=== PATIENT | female | born 1940 | race Caucasian/White ===

== ENCOUNTER 2017-04-04 21:33 | Emergency (ER) | payer OTHER ==
--- NOTE | 2017-04-04 21:55 | ED NURSING NOTES ---
Clinical Report - Nurses [facility] [address] [place] [address] 04/04/2017 21:36 Patient: CARMENCITA VERNON TRIAGE Triage time 21:41 Apr 04 2017. Acuity: LEVEL 4. Chief Complaint: REDNESS, PAIN and VISION PROBLEM TO LEFT EYE. 21:47 04/04/17. SEPSIS SCREEN: Sepsis Screen. Negative (no infection suspected/documented). VISUAL ACUITY: Visual acuity performed: left eye 20/25; right eye 20/30. SPEEDY COMA SCORE: Speedy Coma Scale: 15- eyes open spontaneously (4); best verbal response- oriented x 4 (5); best motor response- obeys commands (6). --21:47 Sobia Lewis R.N. 21:41 04/04/17. BP: 147/66 (regular adult cuff) taken on the left arm, while sitting. HR: 76. RR: 14. O2 saturation: 99% on room air. Temp: 97.8 F (oral). Pain level now: 11/30. --21:47 Sobia Lewis R.N. Weight: 62.5 kg stated. Height/Length: 64 inches Per Patient. BMI: 23.7. --21:45 Sobia Lewis R.N. Medications Allopurinol Oral. --21:42 Sobia Lewis R.N. Ambien Oral. --21:42 Sobia Lewis R.N. Atorvastatin Calcium Oral. --21:42 Sobia Lewis R.N. Hydrocodone-Acetaminophen Oral. --21:44 Sobia Lewis R.N. History Arrived by private vehicle. Historian: patient. Accompanied by family. This started just prior to arrival. She did not sustain an injury. She has had eye discomfort and eye irritation. ( Dry eye). Treatment SOD STRIPPER: None. PAST MEDICAL HX: The patient does not wear contact lenses. The patient is post-menopausal. SOCIAL HX: Never smoker. Occasional alcohol use. No drug use. No infectious disease exposure. ABUSE ASSESSMENT: No report of abuse. --21:47 Sobia Lewis R.N. PROBLEMS: Anxiety Reaction. Gout. Hypercholesterolemia. --21:43 Sobia Lewis R.N. DDD. --21:44 Sobia Lewis R.N. ADDITIONAL SURGERIES: Turmor removed adrenal gland. --21:43 Sobia Lewis R.N. Interventions ID band on patient. To treatment room. --21:47 Sobia Lewis R.N. PHYSICAL ASSESSMENT 21:48 04/04/17. Ambulatory to room. GENERAL / NEURO / PSYCH: Alert. Appears in no acute distress. HEENT: No facial asymmetry noted. EOM intact. Right ear within normal limits. Left ear within normal limits. Mouth inspection within normal limits. Pharynx within normal limits. RESPIRATORY: Respirations not labored. CVS: Capillary refill less than 2 seconds. SKIN: Skin is warm and dry. Normal skin turgor. --21:48 Sobia Lewis R.N. NURSING PROGRESS NOTES 21:48 04/04/17. The plan of care for this patient has been created. Head of bed elevated. Reassurance given. Two patient identifiers checked. Call light placed in reach. Side rails up x 1. Bed placed in lowest position. Brakes of bed on. Patient ready for evaluation- chart flagged and ED physician notified. --21:48 Sobia Lewis R.N. DISPOSITION / DISCHARGE Departure time: 2200 PM. Condition at departure: unchanged and stable. ( Pt left without any paperwork). The patient left prior to discharge education being provided. The patient was discharged by the nurse practitioner. She was discharged home and accompanied by family. She left the Emergency Department ambulatory and via private vehicle. Family member driving. FALL RISK ASSESSMENT: Fall risk assessment completed. No fall risk identified. --22:10 Jaclyn [place] R.N. 21:47 04/04/17. BP: 147/66 (regular adult cuff) taken on the left arm, via an automated monitor, while sitting. HR: 76. RR: 14. O2 saturation: 99%. Pain level now: 11/30. --22:10 Jaclyn [place] R.N. Locked/Released at 04/04/2017 22:10 by Jaclyn [place] R.N.
--- NOTE | 2017-04-04 21:55 | ED CLINICAL REPORT ---
Clinical Report - Physicians/Mid Levels [facility] [address] [place] [address] 04/04/2017 21:36 Patient: CARMENCITA VERNON Time Seen: 21:44; initial patient contact, initial documentation, patient care assumed. Arrived- By private vehicle. Historian- patient. HISTORY OF PRESENT ILLNESS Chief Complaint: bleeding. This started just prior to arrival, involves the left eye, is characterized as mild and has been constant and is still present. The patient did not sustain an injury. No eye pain, eye redness, eye irritation or eye discharge or eye itching. No eyelid swelling, photophobia, blurred vision, double vision or decreased vision. No loss of vision. Eye discomfort. ( sitting in car when blood started pooling in eye, had this happen before). REVIEW OF SYSTEMS All systems otherwise negative, except as recorded above. PAST HISTORY See nurses notes. PROBLEMS: Anxiety Reaction. Gout. Hypercholesterolemia. --21:43 Sobia Lewis R.N. DDD. --21:44 Sobia Lewis R.N. ADDITIONAL SURGERIES: Turmor removed adrenal gland. --21:43 Sobia Lewis R.N. No history of prior eye injury. SOCIAL HISTORY Never smoker. Occasional alcohol use. No drug use. FAMILY HISTORY No significant family medical history. ADDITIONAL NOTES The nursing notes have been reviewed with agreement regarding the chief complaint, HPI, ROS, PMH and patient medications and allergies. PHYSICAL EXAM Vital Signs: 04/04/2017 21:41 BP: 147/66. HR: 76. RR: 14. O2 saturation: 99%. Temp: 97.8 F. Pain level now: 2/10. Have been reviewed as normal and appear to be correct. HEENT: Ears normal. Nose normal. Pharynx normal. Head appears normal to external inspection. Rt Eye: Right eye exam normal. Eyes: Visual acuity noted- see nurse's notes. Eyelids appear normal to inspection. Conjunctivae and sclerae do not appear normal to inspection. Corneas appear normal to inspection. Pupils equal, round and reactive to light. Accommodation normal. Funduscopic exam normal. Visual robertson normal. EOMs intact. Periorbital areas appear normal to inspection. Anterior chambers clear. Anterior chambers of normal depth. Lt Eye: Left eye exam normal. Medium sized subconjunctival hemorrhage (L side). Neck: Neck supple. Normal inspection. Respiratory: No respiratory distress. Skin: No rash. Extremities: Extremities negative. Neuro: Oriented X 3. Mood/affect normal. No motor deficit. No sensory deficit. PROGRESS AND PROCEDURES Course of Care: pt politely declined pain med offer, stating it wasn't that bad. Patient and family counseled in person regarding the patient's stable condition and diagnosis. Differential Diagnosis: Other possible considerations: fb, eye trauma, glaucoma, hyphema, conjunctivitis. Above considerations are based on history and physical exam. Differential diagnosis was discussed with patient. Disposition: Discharged home in good and unchanged condition (21:54). Condition: good and stable. CLINICAL IMPRESSION Left subconjunctival hemorrhage INSTRUCTIONS Warnings: GENERAL WARNINGS: Return or contact your physician immediately if your condition worsens or changes unexpectedly, if not improving as expected, or if other problems arise. Specifically return if problem worsens. Understanding of the discharge instructions verbalized by patient. Follow-up with: Alexus Ghotra MD, Ophthalmology, [facility], [address] [place] [address] - [address], [place] [address]; Michael June MD, Ophthalmology, , [facility], [address] [place] [address]; Katie Emmanuel MD, Ophthalmology, , [address], [place] [address]; Michael Amaro MD, Ophthalmology, , [address], [place] [address]; Kaden Vidal MD, Ophthalmology, , [address], [place] [address]; Van Cabral MD, Ophthalmology, , [address], , [place] [address]; Lea Gallo MD, Ophthalmology, , [address], [place] [address]; Michael Perez MD, Ophthalmology, , [facility], [address] [place] [address] Follow up tomorrow as needed. Call for an appointment. Summary of care provided to patient and family. (Electronically signed by Codi Guillen A.R.N.P. 04/04/2017 22:11)
--- NOTE | 2017-04-04 21:55 | ED NURSING NOTES ---
Clinical Report - Nurses [facility] [address] [place] [address] 04/04/2017 21:36 Patient: CARMENCITA VERNON TRIAGE Triage time 21:41 Apr 04 2017. Acuity: LEVEL 4. Chief Complaint: REDNESS, PAIN and VISION PROBLEM TO LEFT EYE. 21:47 04/04/17. SEPSIS SCREEN: Sepsis Screen. Negative (no infection suspected/documented). VISUAL ACUITY: Visual acuity performed: left eye 20/25; right eye 20/30. SPEEDY COMA SCORE: Speedy Coma Scale: 15- eyes open spontaneously (4); best verbal response- oriented x 4 (5); best motor response- obeys commands (6). --21:47 Sobia Lewis R.N. 21:41 04/04/17. BP: 147/66 (regular adult cuff) taken on the left arm, while sitting. HR: 76. RR: 14. O2 saturation: 99% on room air. Temp: 97.8 F (oral). Pain level now: 11/30. --21:47 Sobia Lewis R.N. Weight: 62.5 kg stated. Height/Length: 64 inches Per Patient. BMI: 23.7. --21:45 Sobia Lewis R.N. Medications Allopurinol Oral. --21:42 Sobia Lewis R.N. Ambien Oral. --21:42 Sobia Lewis R.N. Atorvastatin Calcium Oral. --21:42 Sobia Lewis R.N. Hydrocodone-Acetaminophen Oral. --21:44 Sobia Lewis R.N. History Arrived by private vehicle. Historian: patient. Accompanied by family. This started just prior to arrival. She did not sustain an injury. She has had eye discomfort and eye irritation. ( Dry eye). Treatment MINE WIRER: None. PAST MEDICAL HX: The patient does not wear contact lenses. The patient is post-menopausal. SOCIAL HX: Never smoker. Occasional alcohol use. No drug use. No infectious disease exposure. ABUSE ASSESSMENT: No report of abuse. --21:47 Sobia Lewis R.N. PROBLEMS: Anxiety Reaction. Gout. Hypercholesterolemia. --21:43 Sobia Lewis R.N. DDD. --21:44 Sobia Lewis R.N. ADDITIONAL SURGERIES: Turmor removed adrenal gland. --21:43 Sobia Lewis R.N. Interventions ID band on patient. To treatment room. --21:47 Sobia Lewis R.N. PHYSICAL ASSESSMENT 21:48 04/04/17. Ambulatory to room. GENERAL / NEURO / PSYCH: Alert. Appears in no acute distress. HEENT: No facial asymmetry noted. EOM intact. Right ear within normal limits. Left ear within normal limits. Mouth inspection within normal limits. Pharynx within normal limits. RESPIRATORY: Respirations not labored. CVS: Capillary refill less than 2 seconds. SKIN: Skin is warm and dry. Normal skin turgor. --21:48 Sobia Lewis R.N. NURSING PROGRESS NOTES 21:48 04/04/17. The plan of care for this patient has been created. Head of bed elevated. Reassurance given. Two patient identifiers checked. Call light placed in reach. Side rails up x 1. Bed placed in lowest position. Brakes of bed on. Patient ready for evaluation- chart flagged and ED physician notified. --21:48 Sobia Lewis R.N. DISPOSITION / DISCHARGE Departure time: 2200 PM. Condition at departure: unchanged and stable. ( Pt left without any paperwork). The patient left prior to discharge education being provided. The patient was discharged by the nurse practitioner. She was discharged home and accompanied by family. She left the Emergency Department ambulatory and via private vehicle. Family member driving. FALL RISK ASSESSMENT: Fall risk assessment completed. No fall risk identified. --22:10 Jaclyn [place] R.N. 21:47 04/04/17. BP: 147/66 (regular adult cuff) taken on the left arm, via an automated monitor, while sitting. HR: 76. RR: 14. O2 saturation: 99%. Pain level now: 11/30. --22:10 Jaclyn [place] R.N. Locked/Released at 04/04/2017 22:10 by Jaclyn [place] R.N.
--- NOTE | 2017-04-04 21:55 | ED CLINICAL REPORT ---
Clinical Report - Physicians/Mid Levels [facility] [address] [place] [address] 04/04/2017 21:36 Patient: CARMENCITA VERNON Time Seen: 21:44; initial patient contact, initial documentation, patient care assumed. Arrived- By private vehicle. Historian- patient. HISTORY OF PRESENT ILLNESS Chief Complaint: bleeding. This started just prior to arrival, involves the left eye, is characterized as mild and has been constant and is still present. The patient did not sustain an injury. No eye pain, eye redness, eye irritation or eye discharge or eye itching. No eyelid swelling, photophobia, blurred vision, double vision or decreased vision. No loss of vision. Eye discomfort. ( sitting in car when blood started pooling in eye, had this happen before). REVIEW OF SYSTEMS All systems otherwise negative, except as recorded above. PAST HISTORY See nurses notes. PROBLEMS: Anxiety Reaction. Gout. Hypercholesterolemia. --21:43 Sobia Lewis R.N. DDD. --21:44 Sobia Lewis R.N. ADDITIONAL SURGERIES: Turmor removed adrenal gland. --21:43 Sobia Lewis R.N. No history of prior eye injury. SOCIAL HISTORY Never smoker. Occasional alcohol use. No drug use. FAMILY HISTORY No significant family medical history. ADDITIONAL NOTES The nursing notes have been reviewed with agreement regarding the chief complaint, HPI, ROS, PMH and patient medications and allergies. PHYSICAL EXAM Vital Signs: 04/04/2017 21:41 BP: 147/66. HR: 76. RR: 14. O2 saturation: 99%. Temp: 97.8 F. Pain level now: 2/10. Have been reviewed as normal and appear to be correct. HEENT: Ears normal. Nose normal. Pharynx normal. Head appears normal to external inspection. Rt Eye: Right eye exam normal. Eyes: Visual acuity noted- see nurse's notes. Eyelids appear normal to inspection. Conjunctivae and sclerae do not appear normal to inspection. Corneas appear normal to inspection. Pupils equal, round and reactive to light. Accommodation normal. Funduscopic exam normal. Visual robertson normal. EOMs intact. Periorbital areas appear normal to inspection. Anterior chambers clear. Anterior chambers of normal depth. Lt Eye: Left eye exam normal. Medium sized subconjunctival hemorrhage (L side). Neck: Neck supple. Normal inspection. Respiratory: No respiratory distress. Skin: No rash. Extremities: Extremities negative. Neuro: Oriented X 3. Mood/affect normal. No motor deficit. No sensory deficit. PROGRESS AND PROCEDURES Course of Care: pt politely declined pain med offer, stating it wasn't that bad. Patient and family counseled in person regarding the patient's stable condition and diagnosis. Differential Diagnosis: Other possible considerations: fb, eye trauma, glaucoma, hyphema, conjunctivitis. Above considerations are based on history and physical exam. Differential diagnosis was discussed with patient. Disposition: Discharged home in good and unchanged condition (21:54). Condition: good and stable. CLINICAL IMPRESSION Left subconjunctival hemorrhage INSTRUCTIONS Warnings: GENERAL WARNINGS: Return or contact your physician immediately if your condition worsens or changes unexpectedly, if not improving as expected, or if other problems arise. Specifically return if problem worsens. Understanding of the discharge instructions verbalized by patient. Follow-up with: Alexus Ghotra MD, Ophthalmology, [facility], [address] [place] [address] - [address], [place] [address]; Michael June MD, Ophthalmology, , [facility], [address] [place] [address]; Katie Emmanuel MD, Ophthalmology, , [address], [place] [address]; Michael Amaro MD, Ophthalmology, , [address], [place] [address]; Kaden Vidal MD, Ophthalmology, , [address], [place] [address]; Van Cabral MD, Ophthalmology, , [address], , [place] [address]; Lea Gallo MD, Ophthalmology, , [address], [place] [address]; Michael Perez MD, Ophthalmology, , [facility], [address] [place] [address] Follow up tomorrow as needed. Call for an appointment. Summary of care provided to patient and family. (Electronically signed by Codi Guillen A.R.N.P. 04/04/2017 22:11)
--- NOTE | 2017-04-04 22:11 | ED MAR SUMMARY ---
..... Medication Administration Record [facility] [address] [place], [place] [id number] Patient: CARMENCITA VERNON Visit ID: [id number] 77y, F Weight: 62.5 kg Height/Length: 64 in BMI: 23.7 ALLERGIES:
--- NOTE | 2017-04-04 22:11 | ED DISCHARGE INSTRUCTIONS ---
Patient: CARMENCITA VERNON General Instructions [facility] VisitID: [id number] [place] [address] 77y, F Registration Date/Time: 04/04/2017 Left subconjunctival hemorrhage INSTRUCTIONS Warnings: GENERAL WARNINGS: Return or contact your physician immediately if your condition worsens or changes unexpectedly, if not improving as expected, or if other problems arise. Specifically return if problem worsens. Understanding of the discharge instructions verbalized by patient. Follow-up with: Alexus Ghotra MD, Ophthalmology, [facility], [address] [place] [address] - [address], [place] [address]; Michael June MD, Ophthalmology, , [facility], [address] [place] [address]; Katie Emmanuel MD, Ophthalmology, , [address], [place] [address]; Michael Amaro MD, Ophthalmology, , [address], [place] [address]; Kaden Vidal MD, Ophthalmology, , [address], [place] [address]; Van Cabral MD, Ophthalmology, , [address], [place] [address]; Lea Gallo MD, Ophthalmology, , [address], [place] [address]; Michael Perez MD, Ophthalmology, , The [place] [address] Follow up tomorrow as needed. Call for an appointment. Summary of care provided to patient and family. ADDITIONAL INFORMATION Subconjunctival Hemorrhage A subconjunctival hemorrhage is a result of a broken blood vessel in the white portion of the eye. It is usually painless and may be caused by coughing, sneezing or vomiting. An injury to the eye can cause this. It can also be a sign of hypertension (high blood pressure) or a bleeding disorder. Although it can look frightening, the presence of the blood is not serious. The blood will be reabsorbed without treatment within 2-3 weeks. Home Care: You may continue your usual activities. Get Prompt Medical Attention if any of the following occur: Pain in the eye Change in vision The blood does not disappear within three weeks Increasing redness or swelling of the eye Severe headache or dizziness Other signs of bruising or bleeding from other parts of your body You have been given the following additional information: Subconjunctival Hemorrhage (Electronically signed by Codi Guillen A.R.N.P. 04/04/2017 22:11)
--- NOTE | 2017-04-04 22:11 | ED DISCHARGE INSTRUCTIONS ---
Patient: CARMENCITA VERNON General Instructions [facility] VisitID: [id number] [place] [address] 77y, F Registration Date/Time: 04/04/2017 Left subconjunctival hemorrhage INSTRUCTIONS Warnings: GENERAL WARNINGS: Return or contact your physician immediately if your condition worsens or changes unexpectedly, if not improving as expected, or if other problems arise. Specifically return if problem worsens. Understanding of the discharge instructions verbalized by patient. Follow-up with: Alexus Ghotra MD, Ophthalmology, [facility], [address] [place] [address] - [address], [place] [address]; Michael June MD, Ophthalmology, , [facility], [address] [place] [address]; Katie Emmanuel MD, Ophthalmology, , [address], [place] [address]; Michael Amaro MD, Ophthalmology, , [address], [place] [address]; Kaden Vidal MD, Ophthalmology, , [address], [place] [address]; Van Cabral MD, Ophthalmology, , [address], [place] [address]; Lea Gallo MD, Ophthalmology, , [address], [place] [address]; Michael Perez MD, Ophthalmology, , The [place] [address] Follow up tomorrow as needed. Call for an appointment. Summary of care provided to patient and family. ADDITIONAL INFORMATION Subconjunctival Hemorrhage A subconjunctival hemorrhage is a result of a broken blood vessel in the white portion of the eye. It is usually painless and may be caused by coughing, sneezing or vomiting. An injury to the eye can cause this. It can also be a sign of hypertension (high blood pressure) or a bleeding disorder. Although it can look frightening, the presence of the blood is not serious. The blood will be reabsorbed without treatment within 2-3 weeks. Home Care: You may continue your usual activities. Get Prompt Medical Attention if any of the following occur: Pain in the eye Change in vision The blood does not disappear within three weeks Increasing redness or swelling of the eye Severe headache or dizziness Other signs of bruising or bleeding from other parts of your body You have been given the following additional information: Subconjunctival Hemorrhage (Electronically signed by Codi Guillen A.R.N.P. 04/04/2017 22:11)
--- NOTE | 2017-04-04 22:11 | ED MED RECONCILIATION SUMMARY ---
Patient: CARMENCITA VERNON Medication Reconciliation Report [facility] VisitID: [id number] [address] [place] [address] 77y, F Registration Date/Time: 04/04/2017 Weight: 62.5 kg Height/Length: 64 in. BMI: 23.7 ALLERGIES: The patient's Home Medications are listed below: THE FOLLOWING MEDICATIONS NEED TO BE RECONCILED: Allopurinol Oral Ambien Oral Atorvastatin Calcium Oral Hydrocodone-Acetaminophen Oral The source(s) of the original Home Medication information: Not obtained. The following Medications were given to the patient in the Emergency Department: None. The following Medications were prescribed to the patient: None.
--- NOTE | 2017-04-04 22:11 | ED MED RECONCILIATION SUMMARY ---
Patient: CARMENCITA VERNON Medication Reconciliation Report [facility] VisitID: [id number] [address] [place] [address] 77y, F Registration Date/Time: 04/04/2017 Weight: 62.5 kg Height/Length: 64 in. BMI: 23.7 ALLERGIES: The patient's Home Medications are listed below: THE FOLLOWING MEDICATIONS NEED TO BE RECONCILED: Allopurinol Oral Ambien Oral Atorvastatin Calcium Oral Hydrocodone-Acetaminophen Oral The source(s) of the original Home Medication information: Not obtained. The following Medications were given to the patient in the Emergency Department: None. The following Medications were prescribed to the patient: None.
--- NOTE | 2017-04-04 22:11 | ED MAR SUMMARY ---
..... Medication Administration Record [facility] [address] [place] [place], [place] [id number] Patient: CARMENCITA VERNON Visit ID: [id number] 77y, F Weight: 62.5 kg Height/Length: 64 in BMI: 23.7 ALLERGIES:
== END 2017-04-04 21:50 | disposition home or self-care (01) ==
LOC: ED SRH 21:33
DX: H11.32 Conjunctival hemorrhage, left eye (principal); E78.00 Pure hypercholesterolemia, unspecified; Z79.891 Long term (current) use of opiate analgesic; Z79.899 Other long term (current) drug therapy